=== PATIENT | female | born 1935 | race Caucasian/White ===

== ENCOUNTER 2024-10-15 23:59 | Observation (INO) ==
[2024-10-16] MEDS ORDERED: morphine 4 MG/ML VIAL IV PRN (01:16)
[2024-10-16] MEDS ORDERED: ONDANSETRON 4 MG/2 ML VIAL IV PRN (01:16)
[2024-10-16] MEDS: ACETAMINOPHEN 325 MG TABLET PO PRN (01:23)
[2024-10-16] MEDS: oxyCODONE IR 5 MG TABLET PO PRN (01:24)
[2024-10-16] MEDS: ACETAMINOPHEN 325 MG TABLET PO ONE (01:27)
[2024-10-16] MEDS: oxyCODONE IR 5 MG TABLET PO ONE (01:27)
[2024-10-16] MEDS: 0.9 % SODIUM CHLORIDE 10 ML SYRINGE IV SCH (04:31)
[2024-10-16 06:00] LABS: Basophils # (Auto) 0.03 K/mcL (0.00-0.30); Basophils % (Auto) 0.3 % (0.0-2.0); Eosinophils # (Auto) 0.26 K/mcL (0.00-0.70); Eosinophils % (Auto) 2.5 % (0.0-7.0); Hematocrit 42.3 % (34.1-44.9); Hemoglobin 13.3 g/dL (11.2-15.7); Lymphocytes # (Auto) 2.06 K/mcL (1.50-4.80); Lymphocytes % (Auto) 20.1 % (15.5-49.0); Mean Cell Volume 94.6 fL (80.0-100.0); Mean Corpuscular HGB Conc 31.4 g/dL (31.0-36.0); Monocytes # (Auto) 1.15 K/mcL (0.10-0.90); Monocytes % (Auto) 11.2 % (1.0-12.0); Neutrophils % (Auto) 65.6 % (38.0-78.0); Platelet Count 282 K/mcL (140-440); RBC 4.47 M/mcL (3.59-5.38); Red Cell Distribution Width 13.8 % (11.5-14.5); WBC 10.3 K/mcL (4.5-11.0)
[2024-10-16 06:28] LABS: ALT/SGPT 19 U/L (<40); AST/SGOT 30 U/L (<32); Albumin 3.7 gm/dL (3.2-5.2); Albumin/Globulin Ratio 1.5 (1.0-2.3); Alkaline Phosphatase 55 U/L (39-117); Bilirubin,Direct 0.3 mg/dL (<0.3); Bilirubin,Total 0.7 mg/dL (0.1-1.0); Blood Urea Nitrogen 23 mg/dL (8-23); Calcium 9.1 mg/dL (8.6-10.4); Carbon Dioxide 22 mmol/L (22-30); Chloride 101 mmol/L (96-108); Globulin 2.5 gm/dL (2.2-3.7); Glomerular Filtration Rate 50; Glucose 155 mg/dL (70-105); Lactate Dehydrogenase 172 U/L (135-225); Phosphorous 3.9 mg/dL (2.5-4.5); Potassium 3.9 mmol/L (3.3-5.1); Sodium 137 mmol/L (133-145); Triglycerides 143 mg/dL (<150); Uric Acid 5.2 mg/dL (2.5-8.0)
[2024-10-16 07:02] LABS: Appearance,Urine HAZY (Clear); Bilirubin,Urine Negative (Negative); Color,Urine YELLOW; Glucose,Urine (UA) Negative (Negative); Ketones,Urine Negative (Negative); Leukocyte Esterase,Urine Negative /uL (Negative); Nitrate,Urine POS (Negative); Protein,Urine Negative (Negative); Specific Gravity,Urine 1.043 (1.000-1.035); Urine Blood Negative (Negative); Urine RBC 1 /hpf (0-3); Urine Squamous Epithelial Cell 3 /hpf (0-4); Urine WBC 11 /hpf (0-4); Urobilinogen,Urine Negative
[2024-10-16] MEDS ORDERED: HYDROcodone/APAP 5/325MG TABLET PO PRN (08:53)
[2024-10-16] MEDS: DOCUSATE SODIUM 100 MG CAPSULE PO SCH (08:55)
[2024-10-16] MEDS: FENOFIBRATE 43 MG CAPSULE PO SCH (10:06)
[2024-10-16] MEDS: LISINOPRIL 20 MG TABLET PO SCH (10:07)
[2024-10-16] MEDS: DULoxetine 20 MG CAPSULE PO SCH (10:07)
[2024-10-16] MEDS: MELOXICAM 7.5 MG TABLET PO SCH (10:07)
[2024-10-16 12:48] VITALS: TEMP 97.3; O2SAT 93
[2024-10-16] MEDS ORDERED: METHOCARBAMOL 500 MG TABLET PO SCH (21:00)
[2024-10-16] MEDS ORDERED: ATORVASTATIN 40 MG TABLET PO SCH (21:00)
[2024-10-16] MEDS ORDERED: SENNOSIDES 1 TABLET PO SCH (21:00)
== END 2024-10-16 13:56 | disposition home health service (06) ==
LOC: MEDSUR 23:59 → ED 23:59 → MEDSUR 10-16 01:10
PROVIDERS: ADMIT Student in an Organized Health Care Education/Training Program; ATTEND Student in an Organized Health Care Education/Training Program